=== PATIENT | male | born 1975 | race Two or more races ===

== ENCOUNTER 2019-09-23 20:21 | Inpatient (IN) | payer BC ==
[~2019-09-23] VITALS: Ht 177.8 cm; Wt 106.1 kg
[2019-09-23] MEDS ORDERED: SODIUM CHLORIDE 0.9% 1,000 ML IV ONE (20:25)
[2019-09-23] MEDS ORDERED: ONDANSETRON HCL 4MG/2ML INJ IV STA (20:25)
[2019-09-23 20:46] LABS: BG BASE EXCESS 5.4 mmol/L (-2.0-2.0); BG CARBOXYHEMOGLOBIN 0.5 % (0.5-1.5); BG DEOXYHEMOGLOBIN 6.6 % (0.0-5.0); BG FRACTION INSPIRED OXYGEN 100; BG HCO3 ACT 28.6 mmol/L (22.0-26.0); BG METHEMOGLOBIN 0.2 % (0.0-1.5); BG OXYGEN SATURATION 93.4 % (92.0-98.5); BG OXYHEMOGLOBIN 92.7 % (94.0-97.0); BG PCO2 37.3 mmHg (35.0-45.0); BG PH 7.503 (7.350-7.450); BG PO2 63.2 mmHg (75.0-100.0); BG SAMPLE SITE RIGHT RADIAL; BG TOTAL HEMOGLOBIN 14.8 g/dL (12.0-18.0); BG VENT MODE MASK - NRB
[2019-09-23 20:55] LABS: BASOPHILS % 0.1 % (0.0-2.0); HEMATOCRIT. 45.9 % (42.0-52.0); HEMOGLOBIN. 15.7 g/dL (14.0-18.0); LYMPHOCYTES % 8.5 % (20.0-50.0); MEAN CORPUSCULAR HEMOGLOBIN 28.5 pg (28.0-32.0); MEAN CORPUSCULAR VOLUME 83.7 fL (80.0-94.0); MEAN PLATELET VOLUME 8.5 fl (7.4-10.4); MONOCYTES % 4.7 % (2.0-8.0); NEUTROPHILS % 86.7 % (40.0-76.0); PLATELET 242 x1000/uL (130-400); RED BLOOD CELL COUNT 5.49 mill/uL (4.7-6.1); RED CELL DISTRIBUTION WIDTH 14.3 % (11.6-14.6)
[2019-09-23 21:01] LABS: CHLORIDE 94 mEq/L (98-107)
[2019-09-23 21:06] LABS: PROTHROMBIN TIME 10.7 sec (9.6-11.0)
[2019-09-23 22:30] LABS: CLARITY URINE CLEAR (CLEAR); COLOR URINE DARK YELLOW (YELLOW); KETONES URINE NEGATIVE (NEGATIVE); LEUKOCYTE ESTERASE URINE NEGATIVE (NEGATIVE); NITRITE URINE NEGATIVE (NEGATIVE); OCCULT BLOOD URINE TRACE (NEGATIVE); PROTEIN URINE 2+ (NEGATIVE); SPECIFIC GRAVITY URINE 1.019 (1.005-1.030)
[2019-09-23] MEDS ORDERED: LEVOFLOXACIN 500MG PREMIX 100 ML IV ONE (22:45)
[2019-09-24] VITALS (47 sets, daily range): BP systolic 98–160; BP diastolic 50–111
[2019-09-24] MEDS ORDERED: ACETAMINOPHEN 325MG TABLET PO PRN (06:15)
[2019-09-24] MEDS ORDERED: ONDANSETRON HCL 4MG/2ML INJ IV PRN (06:15)
[2019-09-24] MEDS ORDERED: AZITHROMYCIN 250 MG in DEXT 5% WATER 250 ML IV SCH (09:00)
[2019-09-24] MEDS ORDERED: POTASSIUM CHLORIDE 20MEQ TABLET SR PO NR (09:00)
[2019-09-24] MEDS ORDERED: ENOXAPARIN 30MG/0.3ML SYR SUBCUT SCH (09:00)
[2019-09-24] MEDS: PANTOPRAZOLE SODIUM 40 MG/VIAL IV SCH (09:08)
[2019-09-24] MEDS ORDERED: AZITHROMYCIN 500MG in DEXTROSE 5% WATER 250ML IV SCH (09:30)
[2019-09-24 10:16] LABS: BG BASE EXCESS 6.5 mmol/L (-2.0-2.0); BG CARBOXYHEMOGLOBIN 0.3 % (0.5-1.5); BG DEOXYHEMOGLOBIN 6.6 % (0.0-5.0); BG FRACTION INSPIRED OXYGEN 99.8; BG HCO3 ACT 31.5 mmol/L (22.0-26.0); BG METHEMOGLOBIN 0.2 % (0.0-1.5); BG OXYGEN SATURATION 93.4 % (92.0-98.5); BG OXYHEMOGLOBIN 92.9 % (94.0-97.0); BG PCO2 46.3 mmHg (35.0-45.0); BG PO2 67.5 mmHg (75.0-100.0); BG SAMPLE SITE LEFT RADIAL; BG TOTAL HEMOGLOBIN 13.1 g/dL (12.0-18.0); BG VENT MODE MASK - NRB
[2019-09-24] MEDS ORDERED: ALBUTEROL 6.7GM HFA INHALER ORI PRN (13:15)
[2019-09-24] MEDS: CEFTRIAXONE 1,000 MG in DEXTROSE 5% WATER 50 ML IV SCH (14:13)
[2019-09-24] MEDS: METHYLPREDNISOLONE SOD SUCC 40 MG/ML VIAL IV SCH (17:54)
[2019-09-24] MEDS: ENOXAPARIN 120MG/0.8ML SYR SUBCUT SCH (18:00)
[2019-09-25] VITALS (52 sets, daily range): BP systolic 96–174; BP diastolic 48–102
[2019-09-25] MEDS: ENOXAPARIN 120MG/0.8ML SYR SUBCUT SCH ×2 (05:53→18:56)
[2019-09-25] MEDS: AZITHROMYCIN 250 MG in DEXT 5% WATER 250 ML IV SCH (08:14)
[2019-09-25] MEDS: METHYLPREDNISOLONE SOD SUCC 40 MG/ML VIAL IV SCH ×2 (08:14→17:56)
[2019-09-25] MEDS: PANTOPRAZOLE SODIUM 40 MG/VIAL IV SCH (08:14)
[2019-09-25] MEDS: CEFTRIAXONE 1,000 MG in DEXTROSE 5% WATER 50 ML IV SCH (14:03)
[2019-09-26] VITALS (50 sets, daily range): BP systolic 97–164; BP diastolic 32–103
[2019-09-26 05:39] LABS: BASOPHILS % 0.1 % (0.0-2.0); HEMATOCRIT. 45.6 % (42.0-52.0); LYMPHOCYTES % 7.3 % (20.0-50.0); MEAN CORPUSCULAR VOLUME 85.2 fL (80.0-94.0); MEAN PLATELET VOLUME 8.5 fl (7.4-10.4); MONOCYTES % 7.4 % (2.0-8.0); NEUTROPHILS % 85.2 % (40.0-76.0); PLATELET 318 x1000/uL (130-400); RED BLOOD CELL COUNT 5.35 mill/uL (4.7-6.1); RED CELL DISTRIBUTION WIDTH 14.1 % (11.6-14.6)
[2019-09-26 05:44] LABS: CHLORIDE 103 mEq/L (98-107)
[2019-09-26 05:52] LABS: PHOSPHORUS 4.2 mg/dL (2.5-4.9)
[2019-09-26] MEDS: ENOXAPARIN 120MG/0.8ML SYR SUBCUT SCH ×2 (05:59→17:26)
[2019-09-26] MEDS: PANTOPRAZOLE SODIUM 40 MG/VIAL IV SCH (09:28)
[2019-09-26] MEDS: METHYLPREDNISOLONE SOD SUCC 40 MG/ML VIAL IV SCH ×2 (09:28→17:27)
[2019-09-26] MEDS: AZITHROMYCIN 250 MG in DEXT 5% WATER 250 ML IV SCH (09:29)
[2019-09-26 10:25] LABS: BG BASE EXCESS 5.4 mmol/L (-2.0-2.0); BG CARBOXYHEMOGLOBIN 0.6 % (0.5-1.5); BG DEOXYHEMOGLOBIN 6.9 % (0.0-5.0); BG FRACTION INSPIRED OXYGEN 100; BG HCO3 ACT 29.4 mmol/L (22.0-26.0); BG OXYGEN SATURATION 93.1 % (92.0-98.5); BG OXYHEMOGLOBIN 92.5 % (94.0-97.0); BG PH 7.474 (7.350-7.450); BG PO2 64.3 mmHg (75.0-100.0); BG SAMPLE SITE LEFT RADIAL; BG TOTAL HEMOGLOBIN 15.5 g/dL (12.0-18.0); BG VENT MODE MASK - NRB
[2019-09-26 13:06] LABS: HIV SCREEN 4G Non Reactive (Non Reactive)
[2019-09-26] MEDS: CEFTRIAXONE 1,000 MG in DEXTROSE 5% WATER 50 ML IV SCH (14:44)
[2019-09-27] VITALS (38 sets, daily range): BP systolic 93–152; BP diastolic 51–100
[2019-09-27 05:02] LABS: HEMATOCRIT. 47.7 % (42.0-52.0); HEMOGLOBIN. 15.3 g/dL (14.0-18.0); LYMPHOCYTES % 9.4 % (20.0-50.0); MEAN CORPUSCULAR HEMOGLOBIN 27.6 pg (28.0-32.0); MEAN CORPUSCULAR VOLUME 85.8 fL (80.0-94.0); MEAN PLATELET VOLUME 8.4 fl (7.4-10.4); MONOCYTES % 7.8 % (2.0-8.0); NEUTROPHILS % 82.8 % (40.0-76.0); PLATELET 339 x1000/uL (130-400); RED BLOOD CELL COUNT 5.55 mill/uL (4.7-6.1); RED CELL DISTRIBUTION WIDTH 14.3 % (11.6-14.6)
[2019-09-27 05:06] LABS: CHLORIDE 106 mEq/L (98-107)
[2019-09-27] MEDS: ENOXAPARIN 120MG/0.8ML SYR SUBCUT SCH ×2 (06:59→18:00)
[2019-09-27] MEDS: METHYLPREDNISOLONE SOD SUCC 40 MG/ML VIAL IV SCH ×2 (09:20→17:58)
[2019-09-27] MEDS: AZITHROMYCIN 250 MG in DEXT 5% WATER 250 ML IV SCH (09:21)
[2019-09-27] MEDS: PANTOPRAZOLE SODIUM 40 MG/VIAL IV SCH (09:21)
[2019-09-27] MEDS ORDERED: LIDOCAINE HCL 1% 20ML VIAL (Pyxis) INJ ONE (11:48)
[2019-09-27] MEDS: CEFTRIAXONE 1,000 MG in DEXTROSE 5% WATER 50 ML IV SCH (14:34)
[2019-09-27] MEDS ORDERED: DIPHENHYDRAMINE 50MG/ML VIAL IV PRN (19:15)
[2019-09-28] VITALS (28 sets, daily range): BP systolic 103–136; BP diastolic 57–84
[2019-09-28 06:15] LABS: BASOPHILS % 0.1 % (0.0-2.0); HEMATOCRIT. 43.6 % (42.0-52.0); HEMOGLOBIN. 14.3 g/dL (14.0-18.0); LYMPHOCYTES % 9.1 % (20.0-50.0); MEAN CORPUSCULAR VOLUME 85.3 fL (80.0-94.0); MEAN PLATELET VOLUME 8.4 fl (7.4-10.4); MONOCYTES % 5.4 % (2.0-8.0); NEUTROPHILS % 85.4 % (40.0-76.0); PLATELET 338 x1000/uL (130-400); RED BLOOD CELL COUNT 5.11 mill/uL (4.7-6.1); RED CELL DISTRIBUTION WIDTH 14.4 % (11.6-14.6)
[2019-09-28 06:24] LABS: CHLORIDE 104 mEq/L (98-107)
[2019-09-28] MEDS: ENOXAPARIN 120MG/0.8ML SYR SUBCUT SCH ×2 (06:43→18:00)
[2019-09-28] MEDS: PANTOPRAZOLE SODIUM 40 MG/VIAL IV SCH (09:04)
[2019-09-28] MEDS: METHYLPREDNISOLONE SOD SUCC 40 MG/ML VIAL IV SCH ×2 (09:04→19:16)
[2019-09-28] MEDS: AZITHROMYCIN 250 MG in DEXT 5% WATER 250 ML IV SCH (10:10)
[2019-09-28] MEDS: CEFTRIAXONE 1,000 MG in DEXTROSE 5% WATER 50 ML IV SCH (14:50)
[2019-09-29] VITALS: BP 108/57
[2019-09-29 04:00] VITALS: BP 108/71
[2019-09-29 08:00] VITALS: BP 103/64
[2019-09-29] MEDS: PANTOPRAZOLE SODIUM 40 MG/VIAL IV SCH (08:08)
[2019-09-29] MEDS: METHYLPREDNISOLONE SOD SUCC 40 MG/ML VIAL IV SCH ×2 (08:08→17:36)
[2019-09-29] MEDS: ENOXAPARIN 120MG/0.8ML SYR SUBCUT SCH ×2 (08:10→17:37)
[2019-09-29 12:00] VITALS: BP 90/52
[2019-09-29 16:00] VITALS: BP 100/63
[2019-09-29 20:00] VITALS: BP 105/65
[2019-09-30] VITALS: BP 93/57
[2019-09-30 04:00] VITALS: BP 110/69
[2019-09-30] MEDS: ENOXAPARIN 120MG/0.8ML SYR SUBCUT SCH ×2 (05:54→17:37)
[2019-09-30 08:00] VITALS: BP 103/60
[2019-09-30] MEDS: FAMOTIDINE 20MG/2ML VIAL IV SCH ×2 (09:11→20:23)
[2019-09-30] MEDS: PREDNISONE 20MG TABLET PO SCH (09:12)
[2019-09-30 12:00] VITALS: BP 103/62
[2019-09-30 16:00] VITALS: BP 100/59
[2019-09-30 20:15] VITALS: BP 114/72
[2019-10-01 00:15] VITALS: BP 113/71
[2019-10-01 04:30] VITALS: BP 114/63
[2019-10-01] MEDS: ENOXAPARIN 120MG/0.8ML SYR SUBCUT SCH ×2 (05:27→17:42)
[2019-10-01 08:00] VITALS: BP 100/64
[2019-10-01] MEDS: FAMOTIDINE 20MG/2ML VIAL IV SCH ×2 (09:02→21:53)
[2019-10-01] MEDS: PREDNISONE 20MG TABLET PO SCH (09:03)
[2019-10-01 12:00] VITALS: BP 97/66
[2019-10-01 16:00] VITALS: BP 98/63
[2019-10-01 20:00] VITALS: BP 101/57
[2019-10-02] VITALS: BP 97/62
[2019-10-02 04:00] VITALS: BP 92/57
[2019-10-02] MEDS: ENOXAPARIN 120MG/0.8ML SYR SUBCUT SCH ×2 (05:43→17:02)
[2019-10-02 08:00] VITALS: BP 95/58
[2019-10-02] MEDS: PREDNISONE 20MG TABLET PO SCH (08:16)
[2019-10-02] MEDS: FAMOTIDINE 20MG/2ML VIAL IV SCH ×2 (08:16→20:40)
[2019-10-02 12:00] VITALS: BP 94/53
[2019-10-02 16:00] VITALS: BP 106/73
[2019-10-02 19:58] VITALS: BP 108/66
[2019-10-03] VITALS: BP 94/47
[2019-10-03 04:00] VITALS: BP 99/52
[2019-10-03] MEDS: ENOXAPARIN 120MG/0.8ML SYR SUBCUT SCH ×2 (05:28→17:54)
[2019-10-03 08:00] VITALS: BP 97/64
[2019-10-03] MEDS: FAMOTIDINE 20MG/2ML VIAL IV SCH ×2 (08:02→21:50)
[2019-10-03] MEDS: PREDNISONE 20MG TABLET PO SCH (08:02)
[2019-10-03 12:00] VITALS: BP 97/55
[2019-10-03 16:00] VITALS: BP 97/64
[2019-10-03 20:00] VITALS: BP 121/72
[2019-10-04] VITALS: BP 92/56
[2019-10-04] MEDS: ENOXAPARIN 120MG/0.8ML SYR SUBCUT SCH (05:23)
[2019-10-04] MEDS ORDERED: LOPERAMIDE HCL 2MG CAPSULE PO PRN (07:00)
[2019-10-04 08:00] VITALS: BP 96/64
[2019-10-04] MEDS: PREDNISONE 20MG TABLET PO SCH (08:08)
[2019-10-04] MEDS: FAMOTIDINE 20MG/2ML VIAL IV SCH (08:08)
[2019-10-04 12:00] VITALS: BP 111/76
[2019-10-04 14:41] VITALS: BP 110/75
== END 2019-10-04 16:25 | disposition home or self-care (01) | DRG 871 ==
LOC: ER 20:21 → EDBEDREQSVC 22:17 → EDBEDREQ 22:17 → EDBEDREQTM 22:17 → ENRESERV 09-24 02:35 → MICUNO 09-24 04:04 → 7WST 09-28 15:32
PROVIDERS: ADMIT Internal Medicine; ATTEND Internal Medicine
PROC: 02HV33Z Insertion of Infusion Device into Superior Vena Cava, Percutaneous Approach (ICD-10-PCS; principal; 2019-09-27)
DX: A41.89 Other specified sepsis (principal); U07.1 COVID-19; J96.01 Acute respiratory failure with hypoxia; J12.89 Other viral pneumonia; E87.1 Hypo-osmolality and hyponatremia; R65.20 Severe sepsis without septic shock; E87.6 Hypokalemia; E66.9 Obesity, unspecified; R79.82 Elevated C-reactive protein (CRP); Z83.3 Family history of diabetes mellitus; Z99.81 Dependence on supplemental oxygen
CPT/HCPCS: 36415; 36600; 71045; 76937; 80048; 80053; 81003; 82375; 82728; 82805; 83605; 83615; 83735; 83880; 84100; 84145; 84484; 85025; 85379; 86140; 87389; 87635; 93005; 99291; C1725; C9113; J0456; J0696; J1650; J1956; J2405; J2920; J3490; J7030; J7060; J7512; U0003